=== PATIENT | female | born 1980 | race Caucasian/White ===

== ENCOUNTER 2018-10-17 08:55 | Outpatient (REF) | payer BC, SELFPAY ==
[2018-10-17 19:23] LABS: Anion Gap 13.4 mmol/L (3-11); BUN 11 mg/dL (7-18); CO2 21.6 mmol/L (21.0-32.0); CREATININE 0.77 mg/dL (0.55-1.02); Calcium 8.9 mg/dL (8.5-10.1); Calculated LDL 130 mg/dL; Chloride 105 mmol/L (98-107); Cholesterol 205 mg/dL (50-200); Glucose 118 mg/dL (70-100); HDL Cholesterol 34 mg/dL (40-60); Potassium 4.1 mmol/L (3.5-5.1); Sodium 140 mmol/L (136-145); Triglyceride 209 mg/dL (30-150)
== END 2018-10-17 09:15 ==
LOC: NCHCN 08:55
PROVIDERS: PCP Family Medicine; Visit Provider Family Medicine
DX: I10 Essential (primary) hypertension (principal)
CPT/HCPCS: 80048; 80061; 83721

== ENCOUNTER 2020-12-23 10:26 | Outpatient (REF) | payer BC, SELFPAY ==
[2020-12-23 19:52] LABS: HCT 41.9 % (36.0-46.0); MCH 29.5 pg (27.0-33.0); MCHC 33.4 % (32.0-36.0); MCV 88.4 fL (80-95); MPV 10.8 fL (8.0-11.0); Platelet Count 279 10^3/uL (130-400); RBC 4.74 10^6/uL (3.93-5.22); RDW-SD 38.7 fL; WBC 6.29 10^3/uL (4.4-10.8)
[2020-12-23 20:13] LABS: Hemoglobin A1C 5.2 % (<5.7)
[2020-12-23 20:31] LABS: ALT 27 U/L (14-59); AST 22 U/L (15-37); Albumin 3.7 g/dL (3.4-5.0); Alkaline Phosphatase 47 U/L (46-116); Anion Gap 8.9 mmol/L (3-11); BUN 14 mg/dL (7-18); Bilirubin, Total 0.4 mg/dL (0.2-1.0); CO2 24.1 mmol/L (21.0-32.0); CREATININE 0.7 mg/dL (0.55-1.02); Calcium 8.9 mg/dL (8.5-10.1); Chloride 108 mmol/L (98-107); Glucose 89 mg/dL (74-106); Lipase 103 U/L (73-393); Potassium 4.5 mmol/L (3.5-5.1); Sodium 141 mmol/L (136-145); TSH 0.75 uIU/mL (0.36-3.74); Total Protein 6.9 g/dL (6.4-8.2)
[2020-12-23 22:15] LABS: Calculated LDL 131 mg/dL (<100); Cholesterol 185 mg/dL (<200); HDL Cholesterol 38 mg/dL (40-60); Triglyceride 84 mg/dL (<150)
== END 2020-12-23 10:27 | disposition home or self-care (01) ==
LOC: NCHCN 10:26
PROVIDERS: PCP Family Medicine; Visit Provider Family Medicine
DX: R10.13 Epigastric pain (principal); Z00.00 Encounter for general adult medical examination without abnormal findings
CPT/HCPCS: 80053; 80061; 83690; 85027; 83036; 84443; 86140

== ENCOUNTER 2021-01-18 01:31 | Outpatient (CLI) | payer BC, SELFPAY ==
--- NOTE | 2021-01-18 | DI.MAMMO_ITS ---
Exam(s) MAMMO SCREENING EXAM: MAMMO SCREENING CLINICAL HISTORY: SCREENING, [facility],Z00.00 TECHNIQUE: Bilateral full field digital CC and MLO mammographic images were obtained with 3D tomosyn thesis and utilizing computer aided detection (CAD). COMPARISON: None. FINDINGS: Masses/Architectural Distortion: None seen. Microcalcifications: No suspicious pleomorphic-type are seen. Skin Thickening/Nipple Retraction: None. IMPRESSION: 1. No significant interval change with no specific features of malignancy noted. 2. Unless there is more urgent need, screening mammography is recommended, as per [employer] guidelines. BI-RADS Category 1 - Negative Breast Density - Category B - Scattered areas of fibroglandular density Breast density category C or D implies that the patient has dense breast tissue. Dense breast tissue is very common and is not abnormal but dense breast tissue can make it harder to find cancer on a ma mmogram. Also, dense breast tissue may increase their breast cancer risk. This information about the result of the mammogram report was provided to the patient to raise their awareness. Use this report when you speak with the patient about their risks for breast cancer, which includes their family hist ory. At that time, you may recommend for more screening tests (Ultrasound or MRI) as they might be us eful based on their risk. A negative radiographic report should not delay biopsy if a dominant or clinically suspicious mass is present. Up to ten percent of cancers are not identified on mammography. A negative report may reinforce clinical impression. Adenosis and dense breasts may obscure an underlying neoplasm. False positive reports average 6 to 10%. Patient will receive a letter notifying them of these results.
== END 2021-01-18 01:51 ==
PROVIDERS: PCP Family Medicine; Visit Provider Family Medicine
DX: Z12.31 Encounter for screening mammogram for malignant neoplasm of breast (principal)
CPT/HCPCS: 77063; 77067

== ENCOUNTER 2021-12-15 10:47 | Outpatient (REF) | payer MEDICAID, SELFPAY ==
--- OUTSIDE RECORDS SUMMARY | 2021-12-15 10:49 | XMS_ITS | Encounter Summary ---
:1980 [place] [address] Care Team Providers Name Role Phone None Primary Care Provider Unavailable Reason for Visit Reason Onset Date Comments No Show 01/20/2013 Encounter Details Date Type Department Care Team Description 01/20/2013 Telephone Obstetrics and Gynecology [place] [address] Social History Tobacco Use Types Packs/Day Years Used Date Never Smoker Smokeless Tobacco: Never Used Sex Assigned at Date Recorded Not on file documented as of this encounter Miscellaneous Notes Telephone Encounter - Margo Uriarte RN - 01/20/2013 8:53 AM EDT Per Amanda's , she currently does not have a phone and they are having vehicle problems that prevent her from coming to clinic appointments. documented in this encounter Plan of Treatment Not on filedocumented as of this encounter Visit Diagnoses Not on filedocumented in this encounter Care Teams Neurosurgery Research Director Relationship Specialty Start Date End Date None PCP - General 01/15/13 04/30/13 None documented as of this encounter
--- OUTSIDE RECORDS SUMMARY | 2021-12-15 10:49 | XMS_ITS | Encounter Summary ---
:1980 Author Organization [facility] [place] [address] Care Team Providers Name Role Phone None Primary Care Provider Unavailable Reason for Visit Reason Comments Patient Education Encounter Details Date Type Department Care Team Description 01/27/2013 Routine Obstetrics and CLINIC, DR SMITH [place]: 13 w2d [place] [facility] [place]o Uriarte, [place] [address] Social History Tobacco Use Types Packs/Day Years Used Date Never Smoker Smokeless Tobacco: Never Used Sex Assigned at Date Recorded Not on file documented as of this encounter Progress Notes Margo Uriarte RN - 01/28/2013 10:09 AM EDT I have met with Amanda for glucometer education. I have provided her with the Freestyle Lite Glucometer. Demonstration of use of this glucometer and return demonstration by Amanda has been done. She is ableto correctly test her blood sugar. I have reviewed the glucometer recording sheet; target goals have been explained - FBS < 90, 1 hrpp < 140, 2 hr pp < 120. She is asked to test her blood sugars 4 x daily, FBS and pp breakfast, lunch and dinner. Amanda agrees to call me in 1 week to report these blood sugars at which time a plan will be made based upon the results. Amanda has my contact number if she should have any questions or concerns about use of the glucometeror results. documented in this encounter Plan of Treatment Not on filedocumented as of this encounter Visit Diagnoses Diagnosis H/O gestational diabetes in prior pregna ncy, currently with other poor obstetric hist ory H/O section complicating pregna ncy Previous delivery, unspecified as to episode of care or not applicable Depression Depressive disorder, not elsewhere class ified Diabetes education, encounter for Type II or unspecified type diabetes rajesh litus without mention of complication, not stated as uncontrolled documented in this encounter Care Teams Brine Plant Operator Relationship Specialty Start Date End Date None PCP - General 01/15/13 04/30/13 None documented as of this encounter
--- OUTSIDE RECORDS SUMMARY | 2021-12-15 10:49 | XMS_ITS | Encounter Summary ---
:1980 Author Organization [facility] [place] [address] Care Team Providers Name Role Phone None Primary Care Provider Unavailable Encounter Details Date Type Department Care Team Description 02/01/2013 Orders Only Obstetrics and Theiler, Eric N, Normal p regnancy Gynecology at [facility] [place] (Primary Dx) [facility] [place] [address] OBSTETRICS & [phone] GYNECOLOGY [place], [place] [address] Social History Tobacco Use Types Packs/Day Years Used Date Never Smoker Smokeless Tobacco: Never Used Sex Assigned at Date Recorded Not on file documented as of this encounter Plan of Treatment Not on filedocumented as of this encounter Visit Diagnoses Diagnosis Normal - Primary state, incidental documented in this encounter Care Teams Sheltered Workshop Worker Relationship Specialty Start Date End Date None PCP - General 01/15/13 04/30/13 None documented as of this encounter
--- OUTSIDE RECORDS SUMMARY | 2021-12-15 10:49 | XMS_ITS | Encounter Summary ---
:1980 Author Organization [facility] [place] [address] Care Team Providers Name Role Phone None Primary Care Provider Unavailable Reason for Visit Reason Comments Routine Visit Depression Encounter Details Date Type Department Care Team Description 01/27/2013 Routine Obstetrics and Eric Church MD [place]: 13w2d Gynecology at [facility] Lis meléndez [place] [address] GYNECOLOGY [phone] [place], [place] [address] (Wo rk) Social History Tobacco Use Types Packs/Day Years Used Date Never Smoker Smokeless Tobacco: Never Used Sex Assigned at Date Recorded Not on file documented as of this encounter Last Filed Vital Signs Vital Sign Reading Time Taken Comments Blood Pressure 110/70 01/27/2013 4:11 PM EDT Pulse - - Temperature - - Respiratory Rate - - Oxygen Saturation - - Inhaled Oxygen Concentration - - Weight 93.4 kg (206 lb) 01/27/2013 4:11 PM EDT Height - - Body Mass Index 37.68 01/13/2013 8:00 AM EDT documented in this encounter Progress Notes Eric Church MD - 01/27/2013 4:28 PM EDT Feeling well. No bleeding or pain. Has had some transportation issues. Would prefer to start monitoring sugars rather than doing the 3 hour GTT. Will proceed with that strategy. Needed glyburide her last . Will also send A1C today. Quad screen today--missed window for 1st tri screening. Was to do PHQ-9 due to depression history, discussed possibly starting antidepressant during or . Pt left without a conclusion and did not do the questonnaire. Need to get this nexttime. Heide Knight LPN - 01/27/2013 4:11 PM EDT Nut & Dep not given due to pt continues to have lots of Nausea documented in this encounter Miscellaneous Notes Miscellaneous - Provider, Scanning - 03/23/2013 3:26 PM EST documented in this encounter Plan of Treatment Not on filedocumented as of this encounter Procedures Procedure Name Priority Date/Time Associated Comments Diagnosis INTEGRATED SCREENING Routine 01/27/2013 5:16 PM R esults for this 1 EDT procedure are i n the results section. HEMOGLOBIN A1C Routine 01/27/2013 5:16 PM Results for this EDT procedure are i n the results section. documented in this encounter Results Integrated Screening 1 (01/27/2013 5:16 PM EDT) athologist Signature IST 1 See Note [facility] Comment: Part 1 of the Integrated Screen was draw n. ??For results of the Integrated Screen a second serum sample drawn at 15 -21 weeks gestation is required. Test performed by [facility], [address], [place] [address] Specimen Anatomical Collection Method Collection Time Receive d Time (Source) Location / / Volume Laterality Blood specimen 01/27/2013 5:16 PM 013 3:04 (specimen) EDT PM EDT Resulting Agency Comment Spec In Lab Eric Church MD CHEMISTRY ORDERABLES Performing Organization Address City/State/[place] [address] [facility] Hemoglobin A1c (01/27/2013 5:16 PM EDT) P athologist Signature Hemoglobin A1C 5.5 4.3 - 6.1 [facility] Comment: The [place] Diabetes [employer] (ADA) has stated that HbA1c values >or= 6.5% are consistent with the diagnosis of mariano betes mellitus. In the absence of hyperglycemia (i.e. plasma glucose > 200 mg/dL) or classic symptoms of hyperglycemia a repeat measurement of Hb A1c should be performed on a separate sample to confirm the diagnosis. The ADA also considers an HbA1c value be tween 5.7% and 6.4% to be consistent with an increased risk of diabetes (pred iabetes). Patients with an HbA1c value in this range should be counseled about their increased risk of progressing to diabetes. Reference: Position Statement: Standards of Medical Care in Diabetes 2013. Diabetes Care 2013:36;suppl 1:S11 -S66. Est Avg Gluc 111 mg/dL [facility] Comment: eAG equivalents for HbA1c percentages: HbA1c(%) ?eAG(mg/dL) 6.0 ?126 6.5 ?140 7.0 ?154 7.5 ?169 8.0 ?183 8.5 ?197 9.0 ?212 9.5 ?226 10.0 ? 240 Limitations: The eAG calculation has not been validated on women, individuals below 18 years old and above 70 years old, and individuals with hemoglobinopathies. Additional resources are available on th e ADA website: ??http://professional.diabetes.org/gluc osecalculator.aspx Armando CEDILLO, Brandi J, Carlitos R, et al. ??Tr anslating the A1C assay into estimated average glucose values. ??Diabetes Care 2008:31(8):4312-2100. Specimen Anatomical Collection Method Collection Time Receive d Time (Source) Location / / Volume Laterality Blood specimen 01/27/2013 5:16 PM 013 5:29 (specimen) EDT PM EDT Resulting Agency Comment Spec In Lab Eric Church MD CHEMISTRY ORDERABLES Performing Organization Address City/State/ZIP Code Phon e Number [place] [phone] [facility] documented in this encounter Visit Diagnoses Diagnosis - Primary state, incidental documented in this encounter Care Teams Home Theater Expert Relationship Specialty Start Date End Date None PCP - General 01/15/13 04/30/13 None documented as of this encounter
--- OUTSIDE RECORDS SUMMARY | 2021-12-15 10:49 | XMS_ITS | Encounter Summary ---
:1980 Author Organization [facility] [place] [address] Care Team Providers Name Role Phone June Samaniego MD Primary Care Provider Encounter Details Date Type Department Care Team Description 01/14/2013 Office Visit [facility] June Samaniego MD [address] [place] [address] [place] [address] [phone] (Wo rk) Social History Tobacco Use Types Packs/Day Years Used Date Never Smoker Smokeless Tobacco: Never Used Sex Assigned at Date Recorded Not on file documented as of this encounter Plan of Treatment Not on filedocumented as of this encounter Visit Diagnoses Not on filedocumented in this encounter Care Teams Fashion Illustrator Relationship Specialty Start Date End Date June Samaniego MD PCP - General 01/10/13 01/14/13 [address] [place] [address] documented as of this encounter
--- OUTSIDE RECORDS SUMMARY | 2021-12-15 10:49 | XMS_ITS | Encounter Summary ---
:1980 Author Organization [facility] [place] [address] Care Team Providers Name Role Phone None Primary Care Provider Unavailable Reason for Visit Reason Onset Date Comments Follow-up 02/02/2013 Encounter Details Date Type Department Care Team Description 02/02/2013 Telephone Obstetrics and Gynecology at [facility] [place] [address] Social History Tobacco Use Types Packs/Day Years Used Date Never Smoker Smokeless Tobacco: Never Used Sex Assigned at Date Recorded Not on file documented as of this encounter Miscellaneous Notes Telephone Encounter - Margo Uriarte RN - 02/02/2013 12:00 PM EDT Please let her know. thanks ----- Message ----- From: Micaela Ambrose Sent: 01/30/2013 2:40 PM To: Eric Joy MD The following message has been reviewed with Amanda. She is aware that she must bring the [facility] form with her for this blood draw. If she does not have it, a copy can be given to her if she stops by the Clinic before the blood draw. Subject: SCREENING Dr. Church, I spoke with the genetic counselors regarding Amanda, (she had her quad screen drawn too early). They can use this sample to test for SAMPSON-A and it will become a Serum integrated. The patient will needa second trimester blood draw to complete the screening. The lab slip will come from [facility] but you will need to put a lab order in [facility]. Will you contact the patient to let her know that she will need another blood draw around 16 weeks? Thank you, Fabian documented in this encounter Plan of Treatment Not on filedocumented as of this encounter Visit Diagnoses Not on filedocumented in this encounter Care Teams Inner Tube Cutter Relationship Specialty Start Date End Date None PCP - General 01/15/13 04/30/13 None documented as of this encounter
--- OUTSIDE RECORDS SUMMARY | 2021-12-15 10:49 | XMS_ITS | Clinical Summary ---
:1980 Author Organization [facility] [place] [address] Care Team Providers Name Role Phone Unknown Primary Care Provider Unavailable Allergies Active Allergy Reactions Severity Noted Date Comments Cis Free Text Allergy Enviro nmental. CIS - Allergic Rhinit is Oxycodone-Acetaminophe Nausea And Vomiting Low 12/30/2012 n Medications Medication Sig Dispensed Refills Start Date End Date Status VITS Take by mouth. 0 A ctive W-CA,FE,FA,<1MG, ( VITAMIN ORAL) Cetirizine (ZYRTEC) 10 Take by mouth. 0 Active mg CapIndications: Indications: allergic rhinitis Allergic Rhinitis albuterol (PROVENTIL Inhale 2 puffs 0 Active HFA;VENTOLIN HFA) 90 into the lungs mcg/actuation inhaler every 4 hours as needed. Use with spacer FLUTICASONE FUROATE 2 sprays by Nasal 0 Active (VERAMYST NASL) route daily. Blood Sugar Diagnostic by Other route. 1 100 each 3 Active (FREESTYLE LITE box = 100 test STRIPS) test strip strips testing 4 x daily lancets (FREESTYLE 4 Devices by Other 100 each 01/28/2013 Active LANCETS) 28 gauge Misc route 4 times daily. by Other route. 1 box = 100 lancets. Active Problems Problem Noted Date H/O shoulder dystocia in prior , currently pr egnant 01/15/2013 Overview: First delivery with significant shoulder dystocia with brachial plexus injury Supervision of other normal 12/30/2012 Overview: Social: OB team / provider: Offshoring Manager / First trimester NOB labs - PN (genetic) screening - integrated scr een CF carrier test - Other - Second trimester 18 week morphology US - H/H and 1 hr Glucose screen - 3 hr GTT if indicated - Third trimester GBS - Delivery plan - Repeat CBE / preferences - Infant feeding - Pedi - PP contraception: (tubal papers signed if indicated - PP help at home - Immunizations Flu shot - TDap - MMR - give pp / not indicated Varicella - give pp / not indicated Pneumovax - Other - Resolved Problems Problem Noted Date Resolved Date H/O gestational diabetes in prior , currently 12/3003/16/2013 Overview: GDM with prior 2 pregnancies. First deli very complicated by shoulder dystocia and permanent brachial plexus injury. C/S with second -early 1 hr GTT ordered 12/30 - ELEVATED, needs 3 hr H/O section complicating 12/30/2012 03/16/2013 Overview: Planning repeat Depression 12/30/2012 03/16/2013 Overview: History of depression. See a counselor now and considering starting medications. Immunizations Name Administration Dates Next Due Pneumococcal Polyvalent 23 01/02/2005 Td, adult 01/02/2005 Social History Tobacco Use Types Packs/Day Years Used Date Never Smoker Smokeless Tobacco: Never Used Sex Assigned at Date Recorded Not on file Last Filed Vital Signs Vital Sign Reading Time Taken Comments Blood Pressure 110/70 01/27/2013 4:11 PM EDT Pulse - - Temperature - - Respiratory Rate - - Oxygen Saturation - - Inhaled Oxygen - - Concentration Weight 93.4 kg (206 lb) 01/27/2013 4:11 PM EDT Height 157.5 cm (5' 2) 01/13/2013 8:00 AM Sourced from Sherrie FRAUSTOT Conversion Body Mass Index 37.68 01/13/2013 8:00 AM EDT Plan of Treatment Health Maintenance Due Date Last Done Comments Covid-19 Vaccine (#1) 11/06/1984 HIV screen 11/06/1997 Hepatitis C Screening 11/06/1997 Tdap adult 11/06/1998 Tetanus vaccine 01/02/2015 01/02/2005 HPV test 12/30/2017 12/30/2012 PAP Smear 12/30/2017 12/30/2012 Breast Cancer Share Decision Needed 2019 Influenza (Flu) vaccine (1 of 1 - Influenza standard 12/14/2021 series) Care Teams Painting Trades Worker Relationship Specialty Start Date End Date Unknown PCP - General 09/16/17 None
--- OUTSIDE RECORDS SUMMARY | 2021-12-15 10:50 | XMS_ITS | Encounter Summary ---
:1980 Author Organization [facility] Address [address] [place] [address] Care Team Providers Name Role Phone None Primary Care Provider Unavailable Encounter Details Date Type Department Care Team Description 01/06/2013 Office Visit Obstetrics and Bailey Vargas, History o f gestational Gynecology at [facility] [address] diabetes in prior [facility] pre gnancy, currently Drive DR (Primary Dx) [place] [phone] Social History Tobacco Use Types Packs/Day Years Used Date Never Smoker Smokeless Tobacco: Never Used Sex Assigned at Date Recorded Not on file documented as of this encounter Progress Notes Bailey Vargas RD - 01/13/2013 1:22 PM EDT NUTRITION SERVICES OUTPATIENT VISIT FOR Gestational Diabetes Pt with history of GDM in her last two pregnancies as well as elevated fasting outside of (not sure what the level was) but has not been on any medications or given a diagnosis of diabetes. Her fist delivery was complicated by a shoulder dystocia with intermediate designer brachial plexus injury. BMI before : BMI >29, not less than 1800 kcals and 15# weight gain Patient verbalized understanding of diet instruction and was able to plan a sample menu without my assistance. Goals of MNT: Carbohydrate controlled meal plan that promotes adequate nutrition and appropriate weight gain, normoglycemia and absence of Ketosis. Disease and Wellness education: Nutrition needs for Instructed patient on a consistent carbohydrate meal plan distributed in 3 meals and 3 snacks emphasizing nutrition needs for . Topics addressed include: Label reading, Dining out, Menu planning/spacing, carbohydrate counting basics, fiber, protein and calcium. Provided Nutrition for a Woman with gestational Diabetes: patient instructed to call me with any questions or concerns-phone number provided. documented in this encounter Plan of Treatment Not on filedocumented as of this encounter Visit Diagnoses Diagnosis History of gestational diabetes in prior , currently - Primary with other poor obstetric hist ory documented in this encounter Care Teams Financial Market Dealer Relationship Specialty Start Date End Date None PCP - General 01/05/13 01/09/13 None documented as of this encounter
--- OUTSIDE RECORDS SUMMARY | 2021-12-15 10:50 | XMS_ITS | Encounter Summary ---
:1980 Author Organization [facility] [place] [address] Care Team Providers Name Role Phone None Primary Care Provider Unavailable Encounter Details Date Type Department Care Team Description 01/09/2013 Telephone Obstetrics and Gynecology at Subha Mtz MD [facility] Lis meléndez OBSTETRICS & [place] [address] [place] [address] [phone] (Wo rk) Social History Tobacco Use Types Packs/Day Years Used Date Never Smoker Smokeless Tobacco: Never Used Sex Assigned at Date Recorded Not on file documented as of this encounter Miscellaneous Notes Telephone Encounter - Subha Escoto MD - 01/09/2013 2:05 PM EDT Attempted to call patient multiple times regarding elevated 1 hour. Unable to reach patient as she does not have a voicemail box set up. She does have a follow-up appointment next week (01/15) with Dr. Borrego. Will forward this message to Dr. Borrego so she can discuss these results with her next week. documented in this encounter Plan of Treatment Not on filedocumented as of this encounter Visit Diagnoses Not on filedocumented in this encounter Care Teams Speech And Language Clinician Relationship Specialty Start Date End Date None PCP - General 01/05/13 01/09/13 None documented as of this encounter
--- OUTSIDE RECORDS SUMMARY | 2021-12-15 10:50 | XMS_ITS | Encounter Summary ---
:1980 Author Organization [facility] Address [address] [place] [address] Care Team Providers Name Role Phone Unavailable Primary Care Provider Unavailable Encounter Details Date Type Department Care Team Description 12/29/1998 Hospital Encounter [facility] Tavares MD [address] [phone] (Wo rk) Social History Tobacco Use Types Packs/Day Years Used Date Never Assessed Sex Assigned at Date Recorded Not on file documented as of this encounter Discharge Disposition Disposition Code Departure Means Destination Auto Discharge documented in this encounter Plan of Treatment Not on filedocumented as of this encounter Procedures Procedure Name Priority Date/Time Associated Diagnosis Comme nts WRIST 3 OR MORE Routine 12/29/1998 16:33 Results for this VIEWS EDT procedure are i n the results section. documented in this encounter Results WRIST 3 OR MORE VIEWS (12/29/1998 16:33 EDT) Anatomical Region Laterality Modality Other Specimen Narrative [facility] - 02/22/2009 7: 37 EST INJURY 2 WEEKS AGO. WRIST PULLED WHILE TUBINS, + PAIN ULNAR ASPECT- INCREASE WITH SUPINATION/PRONATION R/O BONY INJURY 12-29-98: RIGHT WRIST (1640 hrs): Slight swelling is present over the dors al aspect of the wrist. I see no fracture or dislocation or bony abnor mality. D: 12-29-98 T: 01-02-99 /am Procedure Note Shazia Sandoval MD - 02/22/2009 INJURY 2 WEEKS AGO. WRIST PULLED WHILE T UBINS, + PAIN ULNAR ASPECT- INCREASE WITH SUPINATION/PRONATION R/O BONY INJURY 12-29-98: RIGHT WRIST (1640 hrs): Slight swelling is present over the dors al aspect of the wrist. I see no fracture or dislocation or bony abnor mality. D: 12-29-98 T: 01-02-99 /am Performing Organization Address City/State/ZIP Code Phon e Number [facility] [address] [facility] [address] [facility] [address] [place], [place] [address] documented in this encounter Visit Diagnoses Not on filedocumented in this encounter
--- OUTSIDE RECORDS SUMMARY | 2021-12-15 10:50 | XMS_ITS | Encounter Summary ---
:1980 Author Organization [facility] [place] [address] [place] [address] Care Team Providers Name Role Phone June Samaniego MD Primary Care Provider Encounter Details Date Type Department Care Team Description 12/02/2012 Abstract [facility] Provider, His Mulugeta covarrubias MD [facility] Health Information Services [address] [place] [address] Social History Tobacco Use Types Packs/Day Years Used Date Never Assessed Sex Assigned at Date Recorded Not on file documented as of this encounter Last Filed Vital Signs Vital Sign Reading Time Taken Comments Blood Pressure - - Pulse - - Temperature - - Respiratory Rate - - Oxygen Saturation - - Inhaled Oxygen - - Concentration Weight 96.2 kg (212 lb) 12/02/2012 9:00 AM Sourced from [facility] EDT Conversion Height 157.5 cm (5' 2) 12/02/2012 9:00 AM Sourced from [facility] EDT Conversion Body Mass Index 38.78 12/02/2012 9:00 AM EDT documented in this encounter Plan of Treatment Not on filedocumented as of this encounter Visit Diagnoses Not on filedocumented in this encounter Care Teams Thread Drawer Relationship Specialty Start Date End Date June Samaniego MD PCP - General 05/01/13 09/15/17 [address] [place] [address] documented as of this encounter
--- OUTSIDE RECORDS SUMMARY | 2021-12-15 10:50 | XMS_ITS | Encounter Summary ---
:1980 Author Organization [facility] Address [address] [place] [address] Care Team Providers Name Role Phone None, Provider Primary Care Provider Unavailable Encounter Details Date Type Department Care Team Description 07/12/2009 Results Only [facility] Starla Garzon ARNP Laboratory Services - [address] [place] [address] [place] [address] [phone] Social History Tobacco Use Types Packs/Day Years Used Date Never Assessed Sex Assigned at Date Recorded Not on file documented as of this encounter Plan of Treatment Not on filedocumented as of this encounter Procedures Procedure Name Priority Date/Time Associated Diagnosis Comme [facility] CYTOPATHOLOGY Routine 07/12/2009 0:00 EDT Results for this procedure are i n the results section . documented in this encounter Results CYTOPATHOLOGY (07/12/2009 0:00 EDT) Pathology Report: CYTOPATHOLOGY REPORT ? [facility] ALL EN ? LAB Reports generated via electr onic interface contain original data; ? however they are lacking the format of the original report. ? Caution should be taken when reading/interpreting unformatted reports. ? Name: ? IGNACIODAKSHA GONZALEZIDI ? Accession #: ? [id number] ? : ? 1980 (Age: 28) ??F ?Collect Date: ? 07/12/2009 ? Location: ? [facility] ? Receive Date: ? 07/14/2009 ? Provider: ?JAVIER MCCOY ? Copy to: ? Specimen/Source: ? Pap Test, Cervix/Endocervix, ThinPrep Imaging System ? with manual evaluation ? Last Menstrual Period: ? 01/16/10 ? Menstrual/ Status: ? Other: ? HPVA - HPV testing requested if ASC-US on the current ThinPrep Pap test. ? SPECIMEN ADEQUACY ? Satisfactory for Eval uation ? - transformation zone compon ent present ? GENERAL CATEGORIZATION ? Negative for Intraepi thelial Lesion or Malignancy ? Document reviewed and electr onically signed by: ? Aminata Rashel, CT(ASCP ) ? Report Date: ??04/07/ 2010 13:30 ? End of Report ? Specimen Performing Organization Address City/State/[facility] Code Phon e Number [facility] [address] [place] [address] [facility] [address] [place] [address] documented in this encounter Visit Diagnoses Not on filedocumented in this encounter Care Teams Capital Markets Specialist Relationship Specialty Start Date End Date None, Provider PCP - General 07/14/09 documented as of this encounter
--- OUTSIDE RECORDS SUMMARY | 2021-12-15 10:50 | XMS_ITS | Encounter Summary ---
:1980 Author Organization [facility] Address [place] [id number] Care Team Providers Name Role Phone June Samaniego MD Primary Care Provider Encounter Details Date Type Department Care Team Description 12/02/2012 Office Visit [facility] June Samaniego MD [address] [place] [address] [place] [address] [phone] (Wo rk) Social History Tobacco Use Types Packs/Day Years Used Date Never Assessed Sex Assigned at Date Recorded Not on file documented as of this encounter Plan of Treatment Not on filedocumented as of this encounter Visit Diagnoses Not on filedocumented in this encounter Care Teams Mechatronics Technician Relationship Specialty Start Date End Date June Samaniego MD PCP - General 11/21/12 12/21/12 [address] [place] [address] documented as of this encounter
--- OUTSIDE RECORDS SUMMARY | 2021-12-15 10:50 | XMS_ITS | Encounter Summary ---
:1980 Author Organization [facility] Address [address] [place] [address] Care Team Providers Name Role Phone None, Provider Primary Care Provider Unavailable Encounter Details Date Type Department Care Team Description 09/18/2010 Results Only [facility] Montse Sheikh MD Laboratory Services - [address] [place] [address] [place] [address] [phone] Social History Tobacco Use Types Packs/Day Years Used Date Never Assessed Sex Assigned at Date Recorded Not on file documented as of this encounter Plan of Treatment Not on filedocumented as of this encounter Procedures Procedure Name Priority Date/Time Associated Diagnosis Comme nts PAP TEST- RESULT Routine 09/18/2010 0:00 EDT Resu lts for this ONLY procedure are i n the results section. documented in this encounter Results PAP TEST- RESULT ONLY (09/18/2010 0:00 EDT) Pathology Report: CYTOPATHOLOGY REPORT ? [facility] ? LAB Reports generated via [employer] interface contain original data; ? however they are lacking the format of the original report. ? Caution should be taken when reading/interpreting unformatted reports. ? Name: ? DAKSHA AUGUSTIDI ? Accession #: ? [id number] ? : ? 1980 (Age: 29) ??F ?Collect Date: ? 09/18/2010 ? Location: ? [facility] ? Receive Date: ? 09/20/2010 ? Provider: ?GREG MIDDLETON MD ? Copy to: ? Specimen/Source: ? Pap Test, Cervix/Endocervix, ThinPrep Imaging System ? with manual evaluation ? Last Menstrual Period: ? SPECIMEN ADEQUACY ? Satisfactory for Eval uation ? - transformation zone compon ent present ? GENERAL CATEGORIZATION ? Negative for Intraepi thelial Lesion or Malignancy ? Document reviewed and electr onically signed by: ? Jeimy Howelllogg, CT(ASCP) ? Report Date: ??/14/ 2011 15:31 ? End of Report ? Specimen Performing Organization Address City/State/ZIP Code Phon e Number [facility] [address] [place] [address] SERVICES [facility] [address] [place] [address] documented in this encounter Visit Diagnoses Not on filedocumented in this encounter Care Teams Retrimmer Relationship Specialty Start Date End Date None, Provider PCP - General 07/14/09 documented as of this encounter
--- OUTSIDE RECORDS SUMMARY | 2021-12-15 10:50 | XMS_ITS | Clinical Summary ---
:1980 Author Organization [facility] Address [address] [place] [address] Care Team Providers Name Role Phone None, Provider Primary Care Provider Unavailable Social History Tobacco Use Types Packs/Day Years Used Date Never Assessed Sex Assigned at Date Recorded Not on file Plan of Treatment Health Maintenance Due Date Last Done Comments Hepatitis C Screen 1980 COVID-19 Vaccine (#1) 05/09/1980 Care Teams Shop Router Relationship Specialty Start Date End Date None, Provider PCP - General 07/14/09
--- OUTSIDE RECORDS SUMMARY | 2021-12-15 10:50 | XMS_ITS | Encounter Summary ---
:1980 Author Organization [facility] [place] [address] Care Team Providers Name Role Phone None Primary Care Provider Unavailable Reason for Visit Reason Comments Initial Visit Encounter Details Date Type Department Care Team Description 12/30/2012 Initial Obstetrics and Subha Lezama MD [place]: 9w2d Gynecology at [facility] Lis [address] [place] [address] [place] [address] GYNECOLOGY [phone] [place], [place] [address] (Wo rk) Social History Tobacco Use Types Packs/Day Years Used Date Never Smoker Smokeless Tobacco: Never Used Sex Assigned at Date Recorded Not on file documented as of this encounter Last Filed Vital Signs Vital Sign Reading Time Taken Comments Blood Pressure 120/70 12/30/2012 8:57 AM EDT Pulse - - Temperature - - Respiratory Rate - - Oxygen Saturation - - Inhaled Oxygen Concentration - - Weight 95.5 kg (210 lb 8 oz) 12/30/2012 8:57 AM EDT Height 160 cm (5' 3) 12/30/2012 8:57 AM EDT Body Mass Index 37.29 12/30/2012 8:57 AM EDT documented in this encounter Progress Notes Liat Langley MD - 12/30/2012 12:39 PM EDT I saw and evaluated this patient with Dr Lezama and reviewed the resident's above history and I agree with the details as written. The assessment and plan were formulated in discussion with me and I agree with them as documented. Plan early glucola in addition to labs and aneuploidy screening. Liat Langley MD Margo Uriarte RN - 12/30/2012 9:35 AM EDT Amanda is here for her first visit. Her LMP was 10/26/12, a normal period. She reports nausea, fatigue but no vomiting. I have reviewed foods and activities to avoid during . I have discussed Teams and she is most likely to be cared for by MD Team. She has h/o Cl. A2 DM x 2. She would like a repeat c/section as she has h/o shoulder dystocia during the first delivery with brachial plexus injury to the child. 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 I have discussed the services of Dr. Isbell and medication management. I have offered a clinical social work aide consult also which is declined at this time. She is in the process of applying for [place] Medicaid. She is aware that blood work is ordered. I have given her our notebook, Your Journey and reviewed how to contact a provider after hours. I have given her our CD's for Screening and Breast feeding for home review. Subha Leblanc MD - 12/30/2012 9:30 AM EDT Patient is a 32 yo at 9 2/7 wga by LMP seen for NOB visit. She reports some nausea, no emesis. She has had no cramping or bleeding. She has a history of GDM in her last two pregnancies as well as elevated fasting outside of (not sure what the level was) but has not been on any medications or given a diagnosis of diabetes. Her fist delivery was complicated by a shoulder dystocia withlong term brachial plexus injury. She had a section for her second child and is planning a repeat . Patient also with a history of depression. She is seeing a counselor now and considering starting medications. She desires integrated screening and CF testing. Concurrent pap done today. Plan: -early 1 hr GTT -NT and integrated screen part 1 ordered. Will have follow-up visit that day - labs and CF testing, pap and GC/CT pending History of depression. Currently seeing a counselor and considering starting medications. documented in this encounter Miscellaneous Notes Miscellaneous - Provider, Scanning - 12/31/2012 2:29 PM EDT documented in this encounter Plan of Treatment Not on filedocumented as of this encounter Procedures Procedure Name Priority Date/Time Associated Comments Diagnosis CATTLE FEEDER MOLECULAR GENETICS Routine 12/30/2012 9:53 AM Results for this REPORT EDT procedure are i n the results section. CATTLE FEEDER CYTOLOGY FINAL Routine 12/30/2012 9:53 AM Res ults for this REPORT EDT procedure are i n the results section. CYTOPATHOLOGY Routine 12/30/2012 9:53 AM Results for this GYNECOLOGICAL EDT procedure are in the results section. GC/CHLAMYDIA Routine 12/30/2012 8:55 AM ([facility]) EDT GC/CHLAM Routine 12/30/2012 8:55 AM Results f or this EDT procedure are i n the results section. URINE CULTURE Routine 12/30/2012 8:55 AM Results for this EDT procedure are i n the results section. POCT URINE DIPSTICK Routine 12/30/2012 Results for this procedure are i n the results section. documented in this encounter Results Conservation Scientist Cytology Final Report (12/30/2012 9:53 AM EDT) Component Value Ref Test Analysis Performed At [facility] Range Method Time Signature Conservation Scientist Cytology CERNER Final Report ? [facility] ? Provider: ?? SUBHA LEZAMA ?? Pt. Name: ?? NEREYDA Garnett, AMANDA Rodriguez ? Acc #: ?[id number] ?Pt. MRN: ?[id number] ? Col Date: ?? 3 ? /Sex: ?1980,(32 years),Female ? Rec Date: ?? 12/30/2012 ? LOC: ?5L ? CYTOPATHOLOGY: ??CATTLE FEEDER ? ---Adequacy--- ? Specimen submitted is satisfactory. ? Endocervical component present. ? ---Cytopathologic Diagnosis--- ? NORMAL ? Negative for Intraepithelial Lesion or Malignancy (NI LM). ? 01/06/13 ?? Screened by: ??LMY ? 01/06/13 ?? Verified by: ??Albert FINCH(ASCP) , Shazia Irby - Commissions Analyst ? ---Comment--- ? Please also see concurrent HPV test result. ? ---Clinical Information--- ? HPV Option: ? Concurrent HPV ? Preparation: ?Liquid Based Pap ? Specimen Source: ?Endocervical/LBP ? LMP: ?10/26/12 ? Hormones?: ?No ? Hysterectomy?: ?No ?: ?No ?: ?Yes ? I.U.D.?: ?No ? Pelvic Radiation: ? No ? Prior CATTLE FEEDER Therapy?: ? No ? Hist Abnl Pap/Biopsy?: ??No ? Hist of HPV Vaccine?: ?? No ? Hist of Smoking?: ? No ? Hist of BARBARA exposure?: ??No ? Clinical Data, Significant Therapy and Clinical Impre ssion: ? This Pap Test has bee n michael with the assistance of the ThinPrep Pap ? Test Imaging System. ? Note: ? The Pap test is a screening test for cervical c ancer with an inherent ? false-negative rate dependent upon several variables. ??For further ? information please contact the [facility]. ? [facility] ? Provider: ?? SUBHA LEZAMA ?? Pt. Name: ?? AMANDA GANN ? Acc #: ?[id number] ?Pt. MRN: ?[id number] ? Col Date: ?? 3 ? /Sex: ?1980,(32 years),Female ? Rec Date: ?? 12/30/2012 ? LOC: ?5L ? CYTOPATHOLOGY: ??CATTLE FEEDER ? Reference: ??Abchasidy h CS. ??Group President of Pap Smear Results. ??In: ? Paulo BS, Anuel HH, ed. ??The Pap Smear. ??[place]: ??Kirk 2002: ? 71-77. Specimen (Source) Anatomical Collection Method Collection Time Re ceived Time Location / / Volume Laterality 12/30/2012 9:53 AM EDT Subha Lezama MD PATHOLOGY/CYTOLOGY ORDERABLE S Performing Organization Address City/State/[place] [address] [facility] CATTLE FEEDER Molecular Genetics Report (12/30/2012 9:53 AM EDT) [facility] Method Time Signature CATTLE FEEDER Molecular CERNER Genetics ? [facility] Report ? Provider: ?? SUBHA LEZAMA ?? Pt. Name: ?? AMANDA GANN ? Acc #: ?[id number] ?Pt. MRN: ?[id number] ? Col Date: ?? 3 ? /Sex: ?1980,(32 years),Female ? Rec Date: ?? 12/30/2012 ? LOC: ?5L ? MOLECULAR GENETIC STUDIES ? ---REPORT OF DNA ANALYSIS--- ? Misty Sirisha HPV test ? NEGATIVE for high-risk HPV *. ? It is recommended nura t patients with ASCUS cytology and a negative test for ? high-risk HPV undergo further evaluation according to current practice ? guidelines. ??* Testi ng negative for high risk HPV means that the specimen ? is negative for the f ollowing 14 types tested: ??types 16, 18, 31, 33, 35, ? 39, 45, 51, 52, 56, 5 8, 59, 66, and 68. ??The test is not intended to detect ? low risk HPV types. ? Specimen: HPV Testing - Cytology Liquid Based Prep ? Reviewed by: ??Kirk Richter, [facility] ? A ?ECL Endocervical /LBP ? B ?HPVDO Do HPV Testing ? Verified date: ??01/02/13 ??[facility] ? Verified by: ?Lab Review, Molecular Genetics ? (Electronic Signature) Specimen (Source) Anatomical Collection Method Collection Time Re ceived Time Location / / Volume Laterality 12/30/2012 9:53 AM EDT Subha Lezama MD PATHOLOGY/CYTOLOGY ORDERABLE S Performing Organization Address City/State/[place] [address] [facility] Cytopathology Gynecological (12/30/2012 9:53 AM EDT) Specimen Anatomical Collection Method Collection Time Receive d Time (Source) Location / / Volume Laterality AP Specimen 12/30/2012 9:53 AM 3 9:53 EDT AM EDT Narrative CERNER KASHIFIUM - 12/30/2012 9:54 AM E DT Specimen requisition ordered. ??Separate Pathology report to follow Liat Langley MD PATHOLOGY/CYTOLOGY ORDERABLE S Performing Organization Address City/State/ZIP Code Phon e Number [address] [facility] GC/Chlam (12/30/2012 8:55 AM EDT) P athologist Signature GC Gene Amp Negative Negative [facility] [employer] [employer] Comment: The only FDA approved specimen types for this assay are cervix, vagina, urethra and urine. ??The sensitivity and specifi city of the assay for other specimen types has not been determined. GC Source Cervical [facility] Chlamydia Gene Amp Negative Negative [facility] ENNI[facility] Comment: The only FDA approved specimen types for this assay are cervix, vagina, urethra and urine. ??The sensitivity and specifi city of the assay for other specimen types has not been determined. Chlamydia Source Cervical CERNER SHARATH NIUM Specimen Anatomical Collection Method Collection Time Receive d Time (Source) Location / / Volume Laterality Specimen of 12/30/2012 8:55 AM 3 unknown material EDT 10:43 AM ED T (specimen) Resulting Agency Comment Spec In Lab Lilliam Oden MD MICROBIOLOGY - GENERAL ORDER CALE Performing Organization Address City/State/ZIP Code Phon e Number [address] [place] [place] Urine culture Clean Catch Urine (12/30/2012 8:55 AM EDT) Component Value Ref Test Analysis Performed At [facility] gist Range Method Time Signature Urine Culture [facility] ? Patient Name: AMANDA AUGUST ? Ordered By: LILLIAM ODEN ? MR#: [id number] ?LOC: ??5L ? /Sex: ??1980 (32 years), ? Female ? PROCEDURE: Urine Culture ?SOURCE: U CC ? COLLECTED: 12/30/2012 08:55 ? STARTED: 12/30/2012 10:44 ? FINAL REPORT ? Final Report ? Verified:12/31/2012 15:05 ? 10,000-49,000 cfu/ml Lactobacillus species ? Specimen (Source) Anatomical Collection Method Collection Time Re ceived Time Location / / Volume Laterality Urine specimen 12/30/2012 8:55 12/30/2012 obtained by clean AM EDT 10:43 AM E DT catch procedure (specimen) Resulting Agency Comment Spec In Lab Lilliam Oden MD MICROBIOLOGY - GENERAL ORDER CALE Performing Organization Address City/State/[place] [address] [facility] POCT urine dipstick (12/30/2012) [facility] gist Method Time Signature POC Sp Ames 1.01 1.002 - 1.030 POC pH, UA 5 5.0 - 8.5 POC Leuk, UA negative Negative - Negative POC Nitrite, negative Negative - UA Negative POC Protein, negative Negative - UA Negative mg/dL POC Glucose, 100 Normal - UA Normal mg/dL POC Ketone, UA negative Negative - Negative POC Urobil, UA normal 0.2 - 1.0 mg/dL POC Bili, UA negative Negative - Negative POC Blood, UA trace Negative - Negative mary/uL Lilliam Oden MD POINT OF CARE TEST ORDERABLE S documented in this encounter Visit Diagnoses Diagnosis - Primary state, incidental H/O gestational diabetes in prior pregna ncy, currently with other poor obstetric hist ory H/O section complicating pregna ncy Previous delivery, unspecified as to episode of care or not applicable Supervision of other normal Depression Depressive disorder, not elsewhere class ified documented in this encounter Care Teams Tank Driver Relationship Specialty Start Date End Date None PCP - General 12/30/12 12/30/12 None documented as of this encounter
--- OUTSIDE RECORDS SUMMARY | 2021-12-15 10:50 | XMS_ITS | Encounter Summary ---
:1980 Author Organization [facility] [place] [address] [place] [address] Care Team Providers Name Role Phone June Samaniego MD Primary Care Provider Encounter Details Date Type Department Care Team Description 01/13/2013 Abstract [facility] Provider, His Mulugeta covarrubias MD [facility] Health Information Services [address] [place] [id number] Social History Tobacco Use Types Packs/Day Years Used Date Never Smoker Smokeless Tobacco: Never Used Sex Assigned at Date Recorded Not on file documented as of this encounter Last Filed Vital Signs Vital Sign Reading Time Taken Comments Blood Pressure - - Pulse - - Temperature - - Respiratory Rate - - Oxygen Saturation - - Inhaled Oxygen - - Concentration Weight 94.8 kg (209 lb) 01/13/2013 8:00 AM Sourced from [facility] EDT Conversion Height 157.5 cm (5' 2) 01/13/2013 8:00 AM Sourced from [place] EDT Conversion Body Mass Index 38.23 01/13/2013 8:00 AM EDT documented in this encounter Plan of Treatment Not on filedocumented as of this encounter Visit Diagnoses Not on filedocumented in this encounter Care Teams Fire Inspector Relationship Specialty Start Date End Date June Samaniego MD PCP - General 05/01/13 09/15/17 [address] [place] [address] documented as of this encounter
--- OUTSIDE RECORDS SUMMARY | 2021-12-15 10:50 | XMS_ITS | Encounter Summary ---
:1980 Author Organization [facility] Address [address] [place] [address] Care Team Providers Name Role Phone None, Provider Primary Care Provider Unavailable Encounter Details Date Type Department Care Team Description 04/21/2015 Hospital Encounter [facility]- Margy Unknown, Provider, [facility] [address] [place] [address] [place] [address] (Work) [phone] Social History Tobacco Use Types Packs/Day Years Used Date Never Assessed Sex Assigned at Date Recorded Not on file documented as of this encounter Discharge Disposition Disposition Code Departure Means Destination Home or Self Correction documented in this encounter Plan of Treatment Not on filedocumented as of this encounter Visit Diagnoses Not on filedocumented in this encounter Care Teams Vest Busheler Relationship Specialty Start Date End Date None, Provider PCP - General 07/14/09 documented as of this encounter
--- OUTSIDE RECORDS SUMMARY | 2021-12-15 10:50 | XMS_ITS | Encounter Summary ---
:1980 Author Organization [facility] Address [address] [place] [address] Care Team Providers Name Role Phone None, Provider Primary Care Provider Unavailable Encounter Details Date Type Department Care Team Description 04/21/2015 Results Only [facility]- Darline Beasley MD [phone] [address], [place] [phone] (Wo rk) Social History Tobacco Use Types Packs/Day Years Used Date Never Assessed Sex Assigned at Date Recorded Not on file documented as of this encounter Plan of Treatment Not on filedocumented as of this encounter Procedures Procedure Name Priority Date/Time Associated Diagnosis Comme [facility] SURGICAL PATHOLOGY Routine 04/21/2015 7:18 EST Re sults for this procedure are i n the results section. documented in this encounter Results SURGICAL PATHOLOGY (04/21/2015 7:18 EST) Pathology Report: SURGICAL PATHOLOGY REPORT [facility] Reports generated via electronic interface contain siddharth ginal data; LABORATORY however they are lacking the format of the original re port. SERVICES Caution should be taken when reading/interpreting unfo rmatted reports. Name: ? FABI AUGUST ? Accession #: ? [id number] ? : ? 1980 (Age: [age]) ??F ? Collect Date: ? 04/21/2015 ? Location: ? [facility] ? Receive Date: ? 04/22/2015 ? Provider: DARLINE KELSEY MD Copy to: ? Final Pathologic Diagnosis: APPENDIX, APPENDECTOMY: - ??Acute appendicitis and periappendicitis. Document reviewed and electronically signed by: LIGIA SIMON MD Report ??Date: 04/27/2015 08:59 By the signature above, the attending physician certif ies that he/she has personally conducted a gross and/or microscopic examin ation of the described specimens and rendered or confirmed the above diagnosi s. Specimen(s) Received: Appendix Clinical History: Acute appendicitis Gross Description: ? Received in formalin labelled with proper patient identification (initials L, H) and appendix is a vermiform appendix (6.4 cm i n length x 1.0 cm in diameter), with a moderate a mount of attached mesoappendix. The proximal margin is stapled. ? The serosa is huerta-pink and smooth. The cut surf melanie is huerta-pink and unremarkable. The average wall thickness is 0.2 cm wit h no discernible perforation site. The lumen ranges from 0.1 cm to 0.6 cm in diameter and contains no fecalith. The proximal margin is inked roro e. ? The section adjacent to the proxi mal stapled margin, two customer counter representative cross sections and one half of the longitudinally bise cted distal tip are submitted in 1. Dr. Marshall Wallace 04/25/2015 3:15 PM End of Report Specimen Performing Organization Address City/State/ZIP Code Phon e Number [facility] [address] [place] [address] SERVICES documented in this encounter Visit Diagnoses Not on filedocumented in this encounter Care Teams Granulator Tender Relationship Specialty Start Date End Date None, Provider PCP - General 07/14/09 documented as of this encounter
[2021-12-15 20:14] LABS: BUN 13 mg/dL (7-18); Calcium 8.7 mg/dL (8.5-10.1); Chloride 107 mmol/L (98-107); Estimated GFR 72.13 (mL/min/1.73m2); Glucose 107 mg/dL (74-106); Potassium 4.2 mmol/L (3.5-5.1); Sodium 139 mmol/L (136-145)
[2021-12-15 20:22] LABS: Hemoglobin A1C 5.7 % (<5.7)
== END 2021-12-15 10:48 | disposition home or self-care (01) ==
LOC: NCHCN 10:47
PROVIDERS: PCP Family Medicine; Visit Provider Family Medicine
DX: I10 Essential (primary) hypertension (principal); R73.03 Prediabetes
CPT/HCPCS: 80048; 83036

== ENCOUNTER 2023-02-12 10:24 | Outpatient (REF) | payer MEDICAID, SELFPAY ==
[2023-02-12 13:25] LABS: Bilirubin Negative (Negative); Blood Large (Negative); Clarity Sl Cloudy (Clear); Glucose Negative (Negative); Ketones Negative (Negative); Leukocyte Esterase Moderate (Negative); Nitrite Positive (Negative); Specific Gravity 1.015 (1.005-1.025); Urobilinogen 0.2 mg/dL (Up to 0.2)
[2023-02-12 13:35] LABS: Epithelial Cells Rare HPF (Negative); RBC 20-50 HPF (0-2)
[2023-02-12 13:36] LABS: Bacteria Moderate HPF (Negative); C & S Indicated? Yes; Casts Negative LPF (Negative); Crystals Few Amorphous HPF (Negative); Mucus Trace (Negative)
== END 2023-02-12 10:25 | disposition home or self-care (01) ==
LOC: LBN 10:24
PROVIDERS: PCP Family Medicine; Visit Provider Student in an Organized Health Care Education/Training Program
DX: Z12.31 Encounter for screening mammogram for malignant neoplasm of breast (principal); M25.59 Pain in other specified joint
CPT/HCPCS: 87077; 81003; 81015; 87086; 87186

== ENCOUNTER 2023-03-14 02:17 | Outpatient (CLI) | payer MEDICAID, SELFPAY ==
[2023-03-14] MEDS: Albuterol HFA 18 GM 200 PUFF INH IH (11:54)
[2023-03-14] MEDS: Methacholine 100 MG VIAL IH (11:54)
[2023-03-14] MEDS: Inhaler, Assist Device 1 EACH MC (11:55)
--- NOTE | 2023-03-14 13:43 | W.PFT ---
Date of service: 03/14/23 Time of Service: 10:03 Pulmonary Function Test Result Indications: Asthma Interpretation Spirometry: There is no baseline airflow limitation. There was a 32% decrease in FEV1 with administration of 0.5mg/mL methacholine. Lung Volumes: Normal lung volumes Diffusion Capacity: Normal diffusion Airway Pressure: Normal airways resistance Impression Normal baseline pulmonary function testing with a positive methacholine challenge test. Clinical Correlation therefore is recommended.
== END 2023-03-14 02:18 | disposition home or self-care (01) ==
LOC: RT 02:18
PROVIDERS: PCP Family Medicine; Visit Provider Physician Assistant Surgical
DX: J45.909 Unspecified asthma, uncomplicated (principal)
CPT/HCPCS: 94060; 94070; 94726; 94729; 94010; J7674

== ENCOUNTER 2023-04-09 15:48 | Outpatient (REF) | payer MEDICAID, SELFPAY ==
[2023-04-09 19:19] LABS: Anion Gap 9.5 mmol/L (3-11); BUN 14 mg/dL (7-18); CO2 25.5 mmol/L (21.0-32.0); CREATININE 1.2 mg/dL (0.55-1.02); Calcium 9.2 mg/dL (8.5-10.1); Chloride 105 mmol/L (98-107); Glucose 127 mg/dL (74-106); Potassium 3.8 mmol/L (3.5-5.1); Sodium 140 mmol/L (136-145)
[2023-04-09 19:36] LABS: Hemoglobin A1C 5.6 % (<5.7)
== END 2023-04-09 15:49 | disposition home or self-care (01) ==
LOC: NCHCN 15:48
PROVIDERS: PCP Family Medicine; Visit Provider Family Medicine
DX: R73.03 Prediabetes (principal); N20.0 Calculus of kidney
CPT/HCPCS: 80048; 83036

== ENCOUNTER → 2023-04-23 01:34 | Outpatient (CLI) | payer MEDICAID, SELFPAY ==
--- NOTE | 2023-04-23 | DI.MAMMO_ITS ---
Exam(s) MAMMO SCREENING EXAM: MAMMO SCREENING CLINICAL HISTORY: SCREENING, Z12.31. TECHNIQUE: Bilateral full field digital CC and MLO mammographic images were obtained with 3D tomosyn thesis and utilizing computer aided detection (CAD). COMPARISON: Prior baseline mammogram of January 2021 was reviewed. FINDINGS: There are no new right breast findings In left breast there is a small asymmetric density-probable nodule seen medial of center, located 6 c m in from the nipple on the CC view and measuring approximately 4 x 3 mm. Has benign appearance but was not evident previously. On the left MLO view there is a small benign-appearing nodule medially b ut there are also 2 similar size oval nodules located laterally. There are no malignant-appearing microcalcification groups in either breast. There is no significant architectural distortion nor skin thickening-retraction. IMPRESSION: 1. No radiographic evidence of malignancy in the right breast. 2. Nodular densities in left breast which have benign appearance but were not previously evident. Sp ot compression views and ultrasound recommended. BI-RADS Category 0 - Assessment Incomplete: Need additional imaging evaluation Breast Density - Category B - Scattered areas of fibroglandular density Breast density Category C or D implies that the patient has dense breast tissue. Dense breast tissue can make it harder to find cancer on a mammogram. Dense breast tissue is also associated with an incr eased risk of breast cancer. This information about the result of the mammogram report was provided to the patient to raise their awareness. Use this report when you speak with the patient about their risks for breast cancer, which includes their family history. At that time, you may recommend additional screening tests (Ultrasoun d or MRI) as these tests may add significant information. A negative radiographic report should not delay biopsy if a dominant or clinically suspicious mass is present. Up to ten percent of cancers are not identified on mammography. A negative report may reinforce clinical impression. Adenosis and dense breasts may obscure an underlying neoplasm. False positive reports average 6 to 10%. Patient will receive a letter notifying them of these results.
== END ==
PROVIDERS: PCP Family Medicine; Visit Provider Family Medicine
DX: Z12.31 Encounter for screening mammogram for malignant neoplasm of breast (principal); R92.8 Other abnormal and inconclusive findings on diagnostic imaging of breast
CPT/HCPCS: 77063; 77067

== ENCOUNTER → 2023-04-25 02:33 | Outpatient (CLI) | payer MEDICAID, SELFPAY ==
--- NOTE | 2023-04-25 | DI.MAMMO_ITS ---
Exam(s) US BREAST LT COMPLETE MG MAMMO SCREEN CALL BACK UNI EXAM: MG MAMMO SCREEN CALL BACK UNI-LEFT AND COMPLETE LEFT BREAST ULTRASOUND CLINICAL HISTORY: f/u mammo nodular densities left. TECHNIQUE: Unilateral spot mammographic images obtained with 3D tomosynthesisand utilizing computer aided detection (CAD). . Complete LEFT breast Ultrasound was also performed, including all 4 quadrants, the retroareolar regio n, and the ipsilateral axilla. COMPARISON: Prior mammograms were reviewed. This additional imaging was performed due to findings described on the recent screening mammogram of 04/23/2023. FINDINGS: DIAGNOSTIC MAMMOGRAM: Additional mammographic views performed todaydoes not dissipate these nodules. we proceeded with ult rasound COMPLETE LEFT BREAST ULTRASOUND: Ultrasound performed today reveals a few small microcysts corresponding to the findings on the mammog gala. At 2 o'clock position there is a 2 millimeter microcyst. At the 5 o'clock position there is 8t h 3 x 4 mm microcyst. At the 5 o'clock position there is a millimeter microcyst. At 7 o'clock posit ion there is a 4 millimeter microcyst.. At the 11 o'clock position there is a 4 millimeter microcyst . Most importantly, there are no solid lesions. Scanning of the ipsilateral axilla reveals no significant adenopathy. IMPRESSION: 1. Benign findings, as described above. The new small benign-appearing nodules on the recent screen ing mammogram correspond to a few small benign microcysts as described above. Appropriate follow-up discussed by myself with the patient today is to keep her on her yearly mammogr am schedule, with earlier imaging if a self detected breast change is noted.. The patient was informed of these findings and recommendations myself prior to leaving the department today. BI-RADS Category 2 - Benign Findings Breast Density - Category B - Scattered areas of fibroglandular density Breast density Category C or D implies that the patient has dense breast tissue. Dense breast tissue can make it harder to find cancer on a mammogram. Dense breast tissue is also associated with an incr eased risk of breast cancer. This information about the result of the mammogram report was provided to the patient to raise their awareness. Use this report when you speak with the patient about their risks for breast cancer, which includes their family history. At that time, you may recommend additional screening tests (Ultrasoun d or MRI) as these tests may add significant information. A negative radiographic report should not delay biopsy if a dominant or clinically suspicious mass is present. Up to ten percent of cancers are not identified on mammography. A negative report may reinforce clinical impression. Adenosis and dense breasts may obscure an underlying neoplasm. False positive reports average 6 to 10%. Patient will receive a letter notifying them of these results.
== END ==
PROVIDERS: PCP Family Medicine; Visit Provider Family Medicine
DX: Z12.31 Encounter for screening mammogram for malignant neoplasm of breast (principal); R92.8 Other abnormal and inconclusive findings on diagnostic imaging of breast; N60.12 Diffuse cystic mastopathy of left breast
CPT/HCPCS: 76642; 77063; 77067

== ENCOUNTER 2023-05-06 16:30 | Outpatient (REF) | payer MEDICAID, SELFPAY | END 2023-05-06 16:31 | disposition home or self-care (01) | LOC: NCHCN 16:30 | PROVIDERS: PCP Family Medicine; Visit Provider Nurse Practitioner Family | DX: J06.9 Acute upper respiratory infection, unspecified (principal); J02.9 Acute pharyngitis, unspecified | CPT/HCPCS: 87070; 87081 ==

== ENCOUNTER 2023-05-09 10:35 | Outpatient (REF) | payer MEDICAID, SELFPAY ==
[2023-05-09 15:27] LABS: Abs Immature Grans 0.07 10^3/uL (0.0-0.06); Absolute Basophil Count 0.14 10^3/uL (0.0-0.2); Absolute Eosinophil Count 0.15 10^3/uL (0.0-0.7); Absolute Monocyte Count 0.64 10^3/uL (0.1-0.8); Absolute Neutrophil Count 4.85 10^3/uL (1.2-6.7); Basophils % 1.7; Eosinophils % 1.8; HCT 40.3 % (36.0-46.0); HGB 13.4 g/dL (11.2-15.7); Immature Grans % 0.9; Lymphocytes % 28.2; MCH 27.7 pg (27.0-33.0); MCHC 33.3 % (32.0-36.0); MCV 83 fL (80-95); MPV 9.5 fL (8.0-11.0); Monocytes % 7.9; Neutrophils % 59.5; Platelet Count 376 10^3/uL (130-400); RBC 4.84 10^6/uL (3.93-5.22); RDW 12.9 % (11.7-14.6); RDW-SD 38.9 fL; WBC 8.15 10^3/uL (4.4-10.8)
[2023-05-09 15:41] LABS: Mono Screening Negative (Negative)
== END 2023-05-09 10:36 | disposition home or self-care (01) ==
LOC: NCHCN 10:35
PROVIDERS: PCP Family Medicine; Visit Provider Nurse Practitioner Family
DX: J02.9 Acute pharyngitis, unspecified (principal)
CPT/HCPCS: 85025; 86308

== ENCOUNTER → 2023-05-10 01:03 | Outpatient (CLI) | payer MEDICAID, SELFPAY ==
--- NOTE | 2023-05-10 | DI.US_ITS ---
Exam(s) US SOFT TISSUE HEAD OR NECK EXAM: US SOFT TISSUE HEAD OR NECK CLINICAL HISTORY: SORE THROAT,ACUTE PHARYNGITIS,J02.9,SUBMANDIBULAR SWELLING,H/O TONSILLECTIO. TECHNIQUE: Ultrasound was performed using standard protocol. COMPARISON: US RENAL ULTRASOUND(P) from 09/16/2012 US US PELVIC ULTRASOUND from 08/14/2022 FINDINGS: Sonographic assessment utilizing grayscale and color Doppler imaging was performed and targeted to th e area of clinical concern. Submandibular glands and parotid glands appear normal. All lymph nodes are noted within both parotid glands. Normal appearing cervical lymph nodes on the left side of the neck. Suspicious lymph node. Nodule noted at the lower pole of the left thyroid measuring 1.8 cm. IMPRESSION: No evidence of adenopathy. Magna debility glands appear normal. A 1.8 centimeter left thyroid nodule. Thyroid ultrasound could be considered for further evaluation. DATA REPOSITORY:
== END ==
PROVIDERS: PCP Family Medicine; Visit Provider Nurse Practitioner Family
DX: E04.1 Nontoxic single thyroid nodule (principal)
CPT/HCPCS: 76536

== ENCOUNTER → 2023-05-16 02:44 | Outpatient (CLI) | payer MEDICAID, SELFPAY ==
--- NOTE | 2023-05-16 | DI.US_ITS ---
Exam(s) US THYROID EXAM: US THYROID CLINICAL HISTORY: NONTOXIC THYROID NODULE,E04.1. TECHNIQUE: Ultrasound thyroid performed using standard protocol. COMPARISON: US US SOFT TISSUE HEAD OR NECK from 05/10/2023 FINDINGS: Both thyroid lobes exhibit normal size. There are 3 nodules, 1 in each lobe and 1 in the isthmus. T he largest nodules in the left lobe. LEFT THYROID LOBE: Measures 2 cm AP x 2.1 cm wide x 4.1 cm craniocaudal The solid left lobe nodule measures 2 cm x 1.5 cm x 1.5 cm Composition: Solid-2 points Echogenicity: Hypoechoic-2 points Shape: Wider than taller-0 points Margin: Smooth- 0 points Echogenic Foci: None or large comet-tail artifact- 0 points Total Points for this nodule: 4 ACR Ti-Rads Category: TR4 This TR4 level nodule requires ultrasound-guided FNA as it measures greater than 1.5 cm ISTHMUS: There is a single nodule in the isthmus, left of center this nodule measures 0.6 x 0.4 x 0.4 cm Composition: This nodule is mixed [id number] point Echogenicity: Hypoechoic-2 points Shape: Wider than taller in the transverse plane-0 points Margins: This nodule exhibits extra thyroidal extension-3 points Total points for this nodule= 6 points Therefore this is a TR 4 level nodule. It can be watched as it measures less than 1.5 cm RIGHT THYROID LOBE: Measures 1.9 cm AP x 0.5 wide x 0.7 cm craniocaudal Contains a single bilobed nodule. Size: Measures 1.2 x 0.5x0.4 cm. The longest measurement is in the cephalocaudal plane Composition: Solid-2 points Echogenicity: Hypoechoic-2 points Shape: Wider than taller in the transverse plane-0 points Margin: Smooth-0 points Echogenic Foci: None-0 points Total points for this nodule: 4 ACR Ti-Rads Category: 4 This TR 4 level nodule can be followed as it measures less than 1.5 cm. LYMPH NODES: There is no significant adenopathy. IMPRESSION: Thyroid nodules as described above. The dominant nodule is in the left lobe, measuring 2 x 1.5 x 1.5 cm. Ultrasound grading classifies this as a TR 4 level nodule and this requires ultrasound-guided FNA as it measures greater than 1.5 cm. The other 2 nodules described above in the isthmus and in the right lobe can be followed with repeat ultrasound in 1 year There is no significant lymphadenopathy in the neck. DATA REPOSITORY:
== END ==
PROVIDERS: PCP Family Medicine; Visit Provider Nurse Practitioner Family
DX: E04.1 Nontoxic single thyroid nodule (principal)
CPT/HCPCS: 76536

== ENCOUNTER 2023-07-11 14:14 | Outpatient (REF) | payer MEDICAID, SELFPAY ==
[2023-07-11 16:57] LABS: Anion Gap 11.1 mmol/L (3-11); BUN 18 mg/dL (7-18); CO2 24.9 mmol/L (21.0-32.0); CREATININE 1.2 mg/dL (0.55-1.02); Calcium 9.1 mg/dL (8.5-10.1); Calculated LDL 127 mg/dL (<100); Chloride 106 mmol/L (98-107); Cholesterol 237 mg/dL (<200); Glucose 120 mg/dL (74-106); HDL Cholesterol 43 mg/dL (40-60); Potassium 4.3 mmol/L (3.5-5.1); Sodium 142 mmol/L (136-145); Triglyceride 338 mg/dL (<150)
[2023-07-11 18:03] LABS: Hemoglobin A1C 6.2 % (<5.7)
== END 2023-07-11 14:15 | disposition home or self-care (01) ==
LOC: NCHCN 14:14
PROVIDERS: PCP Family Medicine; Visit Provider Family Medicine
DX: I10 Essential (primary) hypertension (principal); R73.03 Prediabetes
CPT/HCPCS: 80048; 80061; 83036

== ENCOUNTER 2023-10-10 13:02 | Outpatient (REF) | payer MEDICAID, SELFPAY ==
[2023-10-10 15:21] LABS: HCT 39.3 % (36.0-46.0); HGB 13.3 g/dL (11.2-15.7)
[2023-10-10 15:38] LABS: Anion Gap 11.1 mmol/L (3-11); BUN 12 mg/dL (7-18); CO2 22.9 mmol/L (21.0-32.0); CREATININE 1.1 mg/dL (0.55-1.02); Calcium 9.4 mg/dL (8.5-10.1); Chloride 107 mmol/L (98-107); Estimated GFR 63.94 (mL/min/1.73m2); Glucose 110 mg/dL (74-106); Potassium 4.4 mmol/L (3.5-5.1); Sodium 141 mmol/L (136-145)
[2023-10-10 16:04] LABS: Hemoglobin A1C 5.8 % (<5.7)
== END 2023-10-10 13:03 | disposition home or self-care (01) ==
LOC: NCHCN 13:02
PROVIDERS: PCP Family Medicine; Visit Provider Family Medicine
DX: I10 Essential (primary) hypertension (principal); R73.03 Prediabetes; Z00.00 Encounter for general adult medical examination without abnormal findings
CPT/HCPCS: 80048; 83036; 85014; 85018

== ENCOUNTER 2024-04-21 16:21 | Outpatient (REF) | payer MEDICAID, SELFPAY ==
[2024-04-21 16:29] LABS: Hemoglobin A1C 5.9 % (<5.7)
[2024-04-21 16:34] LABS: ALT 26 U/L (14-59); AST 23 U/L (15-37); Albumin 3.9 g/dL (3.4-5.0); Alkaline Phosphatase 67 U/L (46-116); Anion Gap 11.7 mmol/L (3-11); BUN 16 mg/dL (7-18); Bilirubin, Total 0.32 mg/dL (0.2-1.0); CO2 22.3 mmol/L (21.0-32.0); CREATININE 1.1 mg/dL (0.55-1.02); Calcium 9.4 mg/dL (8.5-10.1); Calculated LDL 165 mg/dL (<100); Chloride 107 mmol/L (98-107); Cholesterol 263 mg/dL (<200); Estimated GFR 63.54 (mL/min/1.73m2); Glucose 105 mg/dL (74-106); HDL Cholesterol 44 mg/dL (40-60); Potassium 4.4 mmol/L (3.5-5.1); Sodium 141 mmol/L (136-145); Total Protein 7.9 g/dL (6.4-8.2); Triglyceride 273 mg/dL (<150)
== END 2024-04-21 16:22 | disposition home or self-care (01) ==
LOC: NCHCN 16:21
PROVIDERS: PCP Family Medicine; Visit Provider Family Medicine
DX: I10 Essential (primary) hypertension (principal); Z00.00 Encounter for general adult medical examination without abnormal findings
CPT/HCPCS: 80053; 80061; 83036

== ENCOUNTER 2024-05-06 00:44 | Outpatient (CLI) | payer MEDICAID, SELFPAY ==
--- NOTE | 2024-05-06 | DI.MAMMO_ITS ---
Exam(s) MAMMO SCREENING EXAM: MAMMO SCREENING CLINICAL HISTORY: Z12.31 Screening. TECHNIQUE: Bilateral full field digital CC and MLO mammographic images were obtained with 3D tomosyn thesis and utilizing computer aided detection (CAD). COMPARISON: Prior mammograms were reviewed. Prior ultrasound April 2023 reviewed. FINDINGS: There has been no significant change in the appearance and distribution of the fibroglandular tissue. Previously described small nodular density in left breast is again noted, unchanged, and was shown to be a microcyst on prior ultrasound examination 1 year ago. There are no new spiculated masses nor malignant appearing microcalcification groups. There is no significant architectural distortion nor skin thickening-retraction. IMPRESSION: Stable benign appearing findings. No radiographic evidence of malignancy. BI-RADS Category 2 - Benign Findings Breast Density - Category B - Scattered areas of fibroglandular density Breast density Category C or D implies that the patient has dense breast tissue. Dense breast tissue can make it harder to find cancer on a mammogram. Dense breast tissue is also associated with an incr eased risk of breast cancer. This information about the result of the mammogram report was provided to the patient to raise their awareness. Use this report when you speak with the patient about their risks for breast cancer, which includes their family history. At that time, you may recommend additional screening tests (Ultrasoun d or MRI) as these tests may add significant information. A negative radiographic report should not delay biopsy if a dominant or clinically suspicious mass is present. Up to ten percent of cancers are not identified on mammography. A negative report may reinforce clinical impression. Adenosis and dense breasts may obscure an underlying neoplasm. False positive reports average 6 to 10%. Patient will receive a letter notifying them of these results.
== END 2024-05-06 01:04 ==
LOC: DI 00:44
PROVIDERS: PCP Family Medicine; Visit Provider Family Medicine
DX: Z12.31 Encounter for screening mammogram for malignant neoplasm of breast (principal)
CPT/HCPCS: 77063; 77067

== ENCOUNTER 2024-10-20 15:43 | Outpatient (REF) | payer MEDICAID, SELFPAY ==
[2024-10-20 17:13] LABS: Hemoglobin A1C 5.7 % (<5.7)
[2024-10-20 17:20] LABS: Anion Gap 12.2 mmol/L (3-11); BUN 13 mg/dL (7-18); CO2 20.8 mmol/L (21.0-32.0); Calcium 9.2 mg/dL (8.5-10.1); Calculated LDL 160 mg/dL (<100); Chloride 105 mmol/L (98-107); Cholesterol 238 mg/dL (<200); Estimated GFR 80.84 (mL/min/1.73m2); Glucose 107 mg/dL (74-106); HDL Cholesterol 41 mg/dL (>or=50); Potassium 4.4 mmol/L (3.5-5.1); Sodium 138 mmol/L (136-145); Triglyceride 185 mg/dL (<150)
== END 2024-10-20 15:44 | disposition home or self-care (01) ==
LOC: NCHCN 15:43
PROVIDERS: PCP Family Medicine; Visit Provider Family Medicine
DX: R73.03 Prediabetes (principal); I10 Essential (primary) hypertension; E78.5 Hyperlipidemia, unspecified
CPT/HCPCS: 80048; 80061; 83036